=== PATIENT | male | born 1985 | race Caucasian/White ===

== ENCOUNTER 2017-12-26 21:37 | Emergency (ER) | payer BC ==
[2017-12-26] MEDS: HYDROCODONE/APAP (5/325) TAB PO (22:45)
== END 2017-12-26 23:57 | disposition home or self-care (01) ==
LOC: FTE 21:37
DX: S20.219A Contusion of unspecified front wall of thorax, initial encounter (principal); R07.9 Chest pain, unspecified; V49.40XA Driver injured in collision with unspecified motor vehicles in traffic accident, initial encounter
CPT/HCPCS: 71046; 93005; 99284-25